=== PATIENT | female | born 1990 | race Caucasian/White ===

== ENCOUNTER 2024-04-03 16:29 | Emergency (ER) | payer OTHER, SELFPAY ==
[2024-04-03] VITALS (9 sets, daily range): BP systolic 132–159; BP diastolic 72–94; PULSE 73–85; RESP 18–20; TEMP 36.6; O2SAT 94–100; BMI 27.4
[2024-04-03] MEDS: SODIUM CHLORIDE 0.9% 500 ML 1000 ML IV (16:56)
[2024-04-03] MEDS: HALOPERIDOL 5 MG/ML VIAL 2.5 MG IV ×2 (16:56→18:08)
[2024-04-03 17:12] LABS: Alanine Aminotransferase 30 IU/L (<35); Albumin 4.8 g/dL (3.5-5.0); Albumin Globulin Ratio 1.6 (1.0-2.8); Alkaline Phosphatase 64 U/L (38-126); Aspartate Aminotransferase 36 IU/L (14-36); BUN Creatinine Ratio 18.2 (6-22); Blood Urea Nitrogen 14 mg/dL (7-17); Calcium 9.7 mg/dL (8.4-10.2); Carbon Dioxide 16 mmol/L (22-32); Chloride 110 mmol/L (98-107); Estimated Glomerular Filt Rate > 60 mL/min (>60); Glucose 151 mg/dL (70-100); HEMOLYSIS < 15 (0-50); Lipase 49 U/L (23-300); Potassium 3.4 mmol/L (3.4-5.1); Sodium 139 mmol/L (137-145); Total Protein 7.8 g/dL (6.3-8.2)
[2024-04-03 17:15] LABS: Add Manual Diff / Slide Review NO; Basophils Absolute Auto 100 /uL (0-100); Basophils Percent Auto 0.4 % (0-2); Eosinophils Absolute Auto 0 /uL (0-450); Eosinophils Percent Auto 0.1 % (2-4); Hematocrit 43.1 % (36-46); Hemoglobin 14.5 g/dL (12.0-16.0); Lymphocytes Absolute Auto 1400 /uL (1100-4500); Lymphocytes Percent Auto 7.4 % (25-40); Mean Corpuscular HGB Conc 33.7 % (30-36); Mean Corpuscular Hemoglobin 31.3 PG (26-34); Mean Corpuscular Volume 92.9 fL (80-100); Monocytes Absolute Auto 900 /uL (0-900); Monocytes Percent Auto 4.8 % (3-14); Neutrophils Absolute Auto 16700 /uL (1500-7000); Neutrophils Percent Auto 87.3 % (50-75); Platelet Count 346 X10^3/uL (150-400); Red Blood Cell Count 4.64 X10^6/uL (4.0-5.2); Red Cell Distribution Width 13.6 % (11.6-14.8); White Blood Cell Count 19.1 X10^3/uL (4.5-11.0)
[2024-04-03 17:24] LABS: Troponin I < 0.012 ng/mL (0.01-0.034)
[2024-04-03] MEDS: PANTOPRAZOLE 40 MG VIAL IV (17:47)
[2024-04-03] MEDS: LACTATED RINGERS 1,000 ML 1000 ML IV (17:53)
--- NOTE | 2024-04-03 17:58 | ED.NAVMDI ---
HPI - Nausea/Vomiting/Diarrhea <Jeff Daley PA-C - Last Filed: 04/03/24 18:08> General Chief complaint: Nausea/Vomiting/Diarrhea Stated complaint: 16 hours nausea vomitting, chills Time Seen by Provider: 04/03/24 16:34 Source: patient Mode of arrival: Ambulatory History of Present Illness HPI Narrative: This patient is a 33-year-old female that consumes 2 shots of alcohol and marijuana daily. For approximately the last 16 hours, the patient has had nausea, vomiting and is now, ?dry heaving?. She denies back pain, abdominal pain, diarrhea, constipation, dysuria, chest pain or shortness of breath. Patient states that she had a similar episode for a similar amount of time 2 months ago. She also denies hematemesis, melena or hematochezia. No treatments have been tried for today's chief complaint. The patient is apparently unaware of cannabinoid hyperemesis syndrome. Related Data Previous Rx's Medication Instructions Recorded famotidine 40 mg tablet (Pepcid) 40 mg PO BEDTIME #20 tabs 04/03/24 haloperidol 2 mg tablet 2 mg PO BID PRN nausea and 04/03/24 vomiting #10 tabs pantoprazole 40 mg tablet,delayed 40 mg PO BEDTIME #20 tabs 04/03/24 release (Protonix) Allergies Allergy/AdvReac Type Severity Reaction Status Date / Time No Known Drug Allergies Allergy Verified 04/03/24 16:56 Review of Systems <Jeff Daley PA-C - Last Filed: 04/03/24 18:08> Review of Systems Narrative: General: See HPI GI: See HPI All other review of systems have been reviewed and are ultimately negative unless otherwise stated in the HPI Exam <Jeff Daley PA-C - Last Filed: 04/03/24 18:08> Initial Vital Signs Initial Vital Signs: Vital Signs Pulse Oximetry 100 04/03/24 16:39 Const General: cooperative, comfortable, well developed and well groomed [facility] Head: normal to inspection, normocephalic and atraumatic Face and sinus: normal facial exam Mouth: oral mucosae normal, lip normal, tongue normal and oropharynx normal Eyes General: Yes appearance normal, both eyes and all related structures Pupils: PERRL, normal by confrontation and accommodation normal EOM: EOM intact bilaterally Neck Neck: normal visual inspection, full ROM, no meningeal signs, trachea midline and supple Resp Effort & Inspection: normal respiratory effort and able to speak in complete sentences Auscultation: clear to auscultation bilaterally Cardio Rate: regular rate Rhythm: regular rhythm Heart Sounds: S1 normal and S2 normal GI Inspection: normal to inspection Palpation: soft and no hepatosplenomegaly Auscultation: normal bowel sounds Other: No CVA tenderness bilaterally Back/Spine/Pelvis Back: normal to inspection Skin General: no rashes or lesions noted, elasticity normal and turgor normal Neuro General: patient alert, patient awake, patient oriented x3, moves all extremities, no meningeal signs, no focal motor deficits and CN's II-XI intact bilaterally Extrem General: normal to inspection, full ROM, capillary refill normal and normal exam except as noted Psych Appearance: grossly normal and well kempt <Janes Gonzalez DO - Last Filed: 04/04/24 07:08> Initial Vital Signs Initial Vital Signs: Vital Signs Pulse Oximetry 100 04/03/24 16:39 Course <Jeff Daley PA-C - Last Filed: 04/03/24 18:08> Course Course Narrative: Patient was seen and examined. An IV was established and labs were ordered. [place] [id number] which is likely secondary to demargination/stress. She does have ketones noted in her urine without evidence of gross infection. She is likely experiencing mild dehydration. She received a L saline as well as a L of lactated Ringer's. Patient was also given Haldol 2.5 mg initially with complete resolve of her nausea. She was then experiencing abdominal cramping which was addressed with Pepcid and Protonix. The symptoms completely resolved. She has a normal lipase. I do not believe this is pancreatitis. Her LFTs are also within normal limits. She has no abdominal pain on exam. Also do not believe this is an acute kidney injury. I do not believe this is a surgical abdomen such as acute appendicitis. Patient will be continued on Pepcid, Protonix and Haldol up to twice a day as needed. Patient understands the treatment plan. There were no additional questions at the time of discharge and she will follow up as requested. Orders Ordered: Discontinued Medications Famotidine (Famotidine 20 Mg/2 Ml Vial) 40 mg IV NOW KATIE Last Admin: 04/03/24 18:07 Dose: 40 mg Documented By: Haloperidol (Haloperidol 5 Mg/Ml Vial) 2.5 mg IV NOW ONE Stop: 04/03/24 16:48 Last Admin: 04/03/24 16:56 Dose: 2.5 mg Documented By: Haloperidol (Haloperidol 5 Mg/Ml Vial) 2.5 mg IV NOW ONE Stop: 04/03/24 17:55 Last Admin: 04/03/24 18:08 Dose: 2.5 mg Documented By: Sodium Chloride (Normal Saline 0.9%) 500 mls @ 1,000 mls/hr IV BOLUS ONE Stop: 04/03/24 17:16 Last Infusion: 04/03/24 17:46 Dose: Infused Documented By: Admin: 04/03/24 16:56 Dose: 1,000 mls/hr Documented By: Lactated Ringer's (Lactated Ringers) 1,000 mls @ 1,000 mls/hr IV BOLUS ONE Stop: 04/03/24 18:49 Last Infusion: 04/03/24 18:47 Dose: Infused Documented By: Admin: 04/03/24 17:53 Dose: 1,000 mls/hr Documented By: Pantoprazole Sodium (Pantoprazole 40 Mg Vial) 40 mg IV NOW ONE Stop: 04/03/24 17:42 Last Admin: 04/03/24 17:47 Dose: 40 mg Documented By: Vital Signs Vital signs: Vital Signs - 8 hr 04/03/24 16:39 04/03/24 16:40 04/03/24 16:40 Temperature Pulse Rate 73 Respiratory Rate Blood Pressure 159/94 H Pulse Oximetry 100 100 Oxygen Delivery Method 04/03/24 16:45 04/03/24 17:00 04/03/24 17:30 Temperature 97.8 F Pulse Rate 77 85 82 Respiratory Rate 20 Blood Pressure 159/94 H Pulse Oximetry 100 99 99 Oxygen Delivery Method Room Air 04/03/24 17:31 04/03/24 17:31 04/03/24 17:45 Temperature Pulse Rate 78 82 Respiratory Rate 18 Blood Pressure 144/74 H Pulse Oximetry 100 94 Oxygen Delivery Method 04/03/24 17:45 Temperature Pulse Rate Respiratory Rate Blood Pressure 133/81 Pulse Oximetry Oxygen Delivery Method <Janes Lanker, DO - Last Filed: 04/04/24 07:08> Orders Ordered: Discontinued Medications Famotidine (Famotidine 20 Mg/2 Ml Vial) 40 mg IV NOW KATIE Last Admin: 04/03/24 18:07 Dose: 40 mg Documented By: Haloperidol (Haloperidol 5 Mg/Ml Vial) 2.5 mg IV NOW ONE Stop: 04/03/24 16:48 Last Admin: 04/03/24 16:56 Dose: 2.5 mg Documented By: Haloperidol (Haloperidol 5 Mg/Ml Vial) 2.5 mg IV NOW ONE Stop: 04/03/24 17:55 Last Admin: 04/03/24 18:08 Dose: 2.5 mg Documented By: Sodium Chloride (Normal Saline 0.9%) 500 mls @ 1,000 mls/hr IV BOLUS ONE Stop: 04/03/24 17:16 Last Infusion: 04/03/24 17:46 Dose: Infused Documented By: Admin: 04/03/24 16:56 Dose: 1,000 mls/hr Documented By: Lactated Ringer's (Lactated Ringers) 1,000 mls @ 1,000 mls/hr IV BOLUS ONE Stop: 04/03/24 18:49 Last Infusion: 04/03/24 18:47 Dose: Infused Documented By: Admin: 04/03/24 17:53 Dose: 1,000 mls/hr Documented By: Pantoprazole Sodium (Pantoprazole 40 Mg Vial) 40 mg IV NOW ONE Stop: 04/03/24 17:42 Last Admin: 04/03/24 17:47 Dose: 40 mg Documented By: Vital Signs Vital signs: Vital Signs - 8 hr 04/03/24 16:39 04/03/24 16:40 04/03/24 16:40 Temperature Pulse Rate 73 Respiratory Rate Blood Pressure 159/94 H Pulse Oximetry 100 100 Oxygen Delivery Method 04/03/24 16:45 04/03/24 17:00 04/03/24 17:30 Temperature 97.8 F Pulse Rate 77 85 82 Respiratory Rate 20 Blood Pressure 159/94 H Pulse Oximetry 100 99 99 Oxygen Delivery Method Room Air 04/03/24 17:31 04/03/24 17:31 04/03/24 17:45 Temperature Pulse Rate 78 82 Respiratory Rate 18 Blood Pressure 144/74 H Pulse Oximetry 100 94 Oxygen Delivery Method 04/03/24 17:45 Temperature Pulse Rate Respiratory Rate Blood Pressure 133/81 Pulse Oximetry Oxygen Delivery Method MDM - Nausea/Vomiting/Diarrhea <Jeff Daley PA-C - Last Filed: 04/03/24 18:08> Medical Records Attestation: I reviewed the patient's medical records. Lab Data Attestation: I reviewed the patient's lab results. 04/03/24 16:51 04/03/24 16:51 Labs: Lab Results 04/03/24 04/03/24 Range/Units 16:51 17:40 WBC 19.1 H (4.5-11.0) X10^3/uL RBC 4.64 (4.0-5.2) X10^6/uL Hgb 14.5 (12.0-16.0) g/dL Hct 43.1 (36-46) % MCV 92.9 (80-100) fL MCH 31.3 (26-34) PG MCHC 33.7 (30-36) % RDW 13.6 (11.6-14.8) % Plt Count 346 (150-400) X10^3/uL Neut % (Auto) 87.3 H (50-75) % Lymph % (Auto) 7.4 L (25-40) % [place] % (Auto) 4.8 (3-14) % Eos % (Auto) 0.1 L (2-4) % Baso % (Auto) 0.4 (0-2) % Neut # (Auto) 27225 H (3237-4583) /uL Lymph # (Auto) 1400 (7967-0094) /uL [place] # (Auto) 900 (0-900) /uL Eos # (Auto) 0 (0-450) /uL Baso # (Auto) 100 (0-100) /uL Sodium 139 (137-145) mmol/L Potassium 3.4 (3.4-5.1) mmol/L Chloride 110 H (98-107) mmol/L Carbon Dioxide 16 L (22-32) mmol/L BUN 14 (7-17) mg/dL Creatinine 0.77 (0.52-1.04) mg/dL Estimated GFR > 60 (>60) mL/min BUN/Creatinine Ratio 18.2 (6-22) Glucose 151 H (70-100) mg/dL Calcium 9.7 (8.4-10.2) mg/dL Total Bilirubin 1.0 (0.2-1.3) mg/dL AST 36 (14-36) IU/L ALT 30 (<35) IU/L Alkaline Phosphatase 64 (38-126) U/L Troponin I < 0.012 (0.01-0.034) ng/mL Total Protein 7.8 (6.3-8.2) g/dL Albumin 4.8 (3.5-5.0) g/dL Globulin 3.0 (1.7-4.1) g/dL Albumin/Globulin Ratio 1.6 (1.0-2.8) Lipase 49 (23-300) U/L Urine Color Yellow Urine Appearance Clear Urine pH 5.5 (4.5-8.0) Ur Specific [place] >=1.030 H (1.000-1.035) Urine Protein 1+ H (Negative) Urine Glucose (UA) Negative (Negative) g/dL Urine Ketones 3+ H (NEGATIVE) Urine Occult Blood Trace-intact (Negative) Urine Nitrate Negative (Negative) Urine Bilirubin 1+ H (NEGATIVE) Ur Bilirubin Confirm Negative (Negative) Urine Urobilinogen 0.2 (0.2) E.U./dL Ur Leukocyte Esterase Negative (NEGATIVE) Urine RBC None seen (0-5/HPF) Urine WBC 0-1/hpf (0-5/HPF) Ur Squamous Epith Cells None seen (0-5/HPF) Urine Bacteria None seen (None) Urine Mucus 2+ H (Negative) Ur Culture Indicated? Cult not indicated Vol Urine Centrifuged 10ml (spun) Point of Care Testing Test Results Negative Urine Dip Bedside Urine Glucose Negative Bedside Urine Bilirubin - Negative Bedside Urine Ketone +++ 80 Urine Specific [place] 1.030 Bedside Urine Occult Blood + Bedside Urine pH 6.0 Bedside Urine Protein + 30 Bedside Urine Urobilinogen - Negative Bedside Urine Nitrite - Negative Bedside Urine Leukocytes - Negative Esterase MDM Narrative Medical decision making narrative: See above <Janes Gonzalez DO - Last Filed: 04/04/24 07:08> Lab Data Labs: Lab Results 04/03/24 04/03/24 Range/Units 16:51 17:40 WBC 19.1 H (4.5-11.0) X10^3/uL RBC 4.64 (4.0-5.2) X10^6/uL Hgb 14.5 (12.0-16.0) g/dL Hct 43.1 (36-46) % MCV 92.9 (80-100) fL MCH 31.3 (26-34) PG MCHC 33.7 (30-36) % RDW 13.6 (11.6-14.8) % Plt Count 346 (150-400) X10^3/uL Neut % (Auto) 87.3 H (50-75) % Lymph % (Auto) 7.4 L (25-40) % [place] % (Auto) 4.8 (3-14) % Eos % (Auto) 0.1 L (2-4) % Baso % (Auto) 0.4 (0-2) % Neut # (Auto) 09434 H (0552-3553) /uL Lymph # (Auto) 1400 (7084-6798) /uL [place] # (Auto) 900 (0-900) /uL Eos # (Auto) 0 (0-450) /uL Baso # (Auto) 100 (0-100) /uL Sodium 139 (137-145) mmol/L Potassium 3.4 (3.4-5.1) mmol/L Chloride 110 H (98-107) mmol/L Carbon Dioxide 16 L (22-32) mmol/L BUN 14 (7-17) mg/dL Creatinine 0.77 (0.52-1.04) mg/dL Estimated GFR > 60 (>60) mL/min BUN/Creatinine Ratio 18.2 (6-22) Glucose 151 H (70-100) mg/dL Calcium 9.7 (8.4-10.2) mg/dL Total Bilirubin 1.0 (0.2-1.3) mg/dL AST 36 (14-36) IU/L ALT 30 (<35) IU/L Alkaline Phosphatase 64 (38-126) U/L Troponin I < 0.012 (0.01-0.034) ng/mL Total Protein 7.8 (6.3-8.2) g/dL Albumin 4.8 (3.5-5.0) g/dL Globulin 3.0 (1.7-4.1) g/dL Albumin/Globulin Ratio 1.6 (1.0-2.8) Lipase 49 (23-300) U/L Urine Color Yellow Urine Appearance Clear Urine pH 5.5 (4.5-8.0) Ur Specific [place] >=1.030 H (1.000-1.035) Urine Protein 1+ H (Negative) Urine Glucose (UA) Negative (Negative) g/dL Urine Ketones 3+ H (NEGATIVE) Urine Occult Blood Trace-intact (Negative) Urine Nitrate Negative (Negative) Urine Bilirubin 1+ H (NEGATIVE) Ur Bilirubin Confirm Negative (Negative) Urine Urobilinogen 0.2 (0.2) E.U./dL Ur Leukocyte Esterase Negative (NEGATIVE) Urine RBC None seen (0-5/HPF) Urine WBC 0-1/hpf (0-5/HPF) Ur Squamous Epith Cells None seen (0-5/HPF) Urine Bacteria None seen (None) Urine Mucus 2+ H (Negative) Ur Culture Indicated? Cult not indicated Vol Urine Centrifuged 10ml (spun) Point of Care Testing Test Results Negative Urine Dip Bedside Urine Glucose Negative Bedside Urine Bilirubin - Negative Bedside Urine Ketone +++ 80 Urine Specific [place] 1.030 Bedside Urine Occult Blood + Bedside Urine pH 6.0 Bedside Urine Protein + 30 Bedside Urine Urobilinogen - Negative Bedside Urine Nitrite - Negative Bedside Urine Leukocytes - Negative Esterase Discharge Plan Departure Patient Disposition: Home Clinical Impression: Cannabinoid hyperemesis syndrome Instructions: DI for Dehydration -- Adult, Nausea and Vomiting-Adult Activity Restrictions/Additional Instructions: Increase clear fluid intake and rest this weekend Start the medications tomorrow as prescribed Follow up your PCP next week as a recheck Return here for any new, emergent concerns or if you worsen in any way Prescriptions: New haloperidol 2 mg tablet 2 mg PO BID PRN (Reason: nausea and vomiting) Qty: 10 0RF famotidine [Pepcid] 40 mg tablet 40 mg PO BEDTIME Qty: 20 0RF pantoprazole [Protonix] 40 mg tablet,delayed release (DR/EC) 40 mg PO BEDTIME Qty: 20 0RF Stand Alone Forms: Patient Portal/API/Survey ED Sign-out <Janes Gonzalez, DO - Last Filed: 04/04/24 07:08> Cosign ED Attending Cosraulature Attestation: Dr Gonzalez Co-Sign Statement: I was available for consultation during this patient's emergency department visit. This chart is signed by myself for administrative purposes only. I did not have direct contact with this patient during this visit. They were seen independently by the APC.
[2024-04-03 18:03] LABS: Appearance Urine UA CLEAR; Bilirubin Urine UA 1+ (NEGATIVE); Color Urine UA YELLOW; Glucose Urine UA NEGATIVE (Negative); Ketones Urine UA 3+ (NEGATIVE); Leukocyte Esterase Urine UA NEGATIVE (NEGATIVE); Nitrite Urine UA NEGATIVE (Negative); Occult Blood Urine UA TRACE-INTACT (Negative); Protein Urine UA 1+ (Negative); Specific Gravity Urine UA >=1.030 (1.000-1.035); Urobilinogen Urine UA 0.2 E.U./dL (0.2)
[2024-04-03 18:05] LABS: pH Urine UA 5.5 (4.5-8.0)
[2024-04-03] MEDS: FAMOTIDINE 20 MG/2 ML VIAL 40 MG IV (18:07)
[2024-04-03 18:20] LABS: Bacteria Urine None Seen; Culture Indicated Urine Cult Not Indicated; Ictotest Urine Negative (Negative); Mucus Urine 2+ (Negative); RBC Urine None Seen (0-5/HPF); Squamous Epithelial Cell Urine None Seen (0-5/HPF); Urine Volume 10mL (spun); WBC Urine 0-1/HPF (0-5/HPF)
== END 2024-04-03 18:49 | disposition home or self-care (01) ==
PROVIDERS: Emergency Provider Physician Assistant
DX: R11.2 Nausea with vomiting, unspecified (principal); F12.90 Cannabis use, unspecified, uncomplicated
CPT/HCPCS: 36415; 80053; 81001; 81003; 81025; 83690; 84484; 85025; 96361; 96374; 96375; 96376; 99284; J1630; J2470